=== PATIENT | male | born 1955 | race Caucasian/White ===

== ENCOUNTER 2017-10-14 16:45 | Emergency (ER) | payer BC ==
[2017-10-14 17:04] VITALS: BP 140/88
[2017-10-14] MEDS ORDERED: Bacitracin Oint 1 GM U/D Packet TOP ONE (17:08)
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
--- NOTE | 2017-10-16 09:51 | CR ---
Elbow Min 3V Rt INDICATION: contusion to elbow COMPARISON: None FINDINGS: 3 views. No fractures seen. Soft tissue air just above the olecranon seen on the lateral view. There are hypertrophic spurs. No signs of joint effusion.
== END 2017-10-14 18:29 | disposition home or self-care (01) ==
LOC: JP.ED 16:45
DX: S51.031A Puncture wound without foreign body of right elbow, initial encounter (principal); S30.1XXA Contusion of abdominal wall, initial encounter; Z79.82 Long term (current) use of aspirin; Z79.899 Other long term (current) drug therapy; V86.52XA Driver of snowmobile injured in nontraffic accident, initial encounter
CPT/HCPCS: 73080-26-RT; 73080-RT; 81001; 99284